=== PATIENT | female | born 2000 | race Caucasian/White ===

== ENCOUNTER 2023-04-26 09:56 | Outpatient (CLI) | payer OTHER, SELFPAY ==
--- NOTE | ~2023-04-26 | XR_ITS ---
EXAMINATION: XR wrist RT 2V DATE: 04/26/2023 10:11 INDICATION: Right wrist pain. TECHNIQUE: 2 views of right wrist were obtained. COMPARISON: None. FINDINGS: Bone alignment is normal. No fracture. Joint spaces are normal. IMPRESSION: 1. Normal right wrist. Reviewed, dictated and finalized at location [facility]. IMPRESSION: 1. Normal right wrist.
== END 2023-04-26 09:57 | disposition home or self-care (01) ==
LOC: ANHBWCIMG 09:58
PROVIDERS: PCP Nurse Practitioner Adult Health; Visit Provider Nurse Practitioner Adult Health
DX: M25.531 Pain in right wrist (principal)
CPT/HCPCS: 73100

== ENCOUNTER 2023-09-02 19:46 | Emergency (ER) | payer OTHER, SELFPAY ==
--- NOTE | ~2023-09-02 | CT_ITS ---
EXAMINATION: CT abdomen pelvis wo con DATE: 09/02/2023 20:32 INDICATION: Right lower quadrant abdominal pain since yesterday. Fever. TECHNIQUE: Computed tomography (CT) of the abdomen and pelvis was performed without intravenous contr ast. Automated exposure control and iterative reconstruction technique were employed. Exam dose: 183 .20 mGy-cm total exam DLP. COMPARISON: None. FINDINGS: The lung bases are clear. Normal heart size. No pericardial or pleural effusion. The liver, gallbladder, bile ducts, spleen, pancreas, pancreatic duct, and adrenal glands and kidneys appear normal. The urinary bladder is unremarkable. Normal caliber of the abdominal aorta. No intraperitoneal or retroperitoneal or pelvic lymphadenopath y or ascites is noted. There is an IUD within the uterus. There is heterogeneous approximately 4.5 cm soft tissue mass density in the right adnexal area which may represent ovarian mass or complicated cyst, pelvic inflammatory disease or abscess, or ovarian to rsion. Pelvic ultrasound correlation is recommended with particular attention to possible ovarian tor raphael. The appendix appears normal. There is a prominent amount of fecal material in the colon but no bowel obstruction, bowel wall thick ening, pneumatosis or intraperitoneal free air is detected. Small fat-containing umbilical hernia. Included skeletal structures are unremarkable. IMPRESSION: Heterogeneous soft tissue fullness in the right adnexal area, measuring up to 4.5 cm. Co nsider ovarian torsion, complicated cyst, PID or abscess, less likely ovarian neoplasm Normal-appearing appendix IUD within uterus Reviewed, dictated and finalized at [facility]. Reviewed, dictated and finalized at location A. [employer] IMPRESSION: Heterogeneous soft tissue fullness in the right adnexal area, leda uring up to 4.5 cm. Consider ovarian torsion, complicated cyst, PID or abscess, less likely ovarian neoplasm Normal-appearing appendix IUD within uterus
[2023-09-02 19:46] VITALS: BP 123/82; PULSE 107; RESP 18; TEMP 37.2; O2SAT 100
--- NOTE | 2023-09-02 19:52 | ED.ABDPAIN ---
HPI - Abdominal Pain General Chief Complaint: Abdominal Pain Stated Complaint: RLQ PAIN Time Seen by Provider: 09/02/23 19:50 Source: patient and family Mode of arrival: ambulatory Limitations: no limitations History of Present Illness HPI narrative: Patient is a 23-year-old female with right lower quadrant pain for the past day. MD elicited complaint: abdominal pain Pertinent past history: none Onset (ago): day(s) (1) Pain Consistency: intermittent Location: RLQ and groin Severity: moderate Pain scale (0-10): 5 Quality: sharp Radiation: other ( right groin) Migration to: no migration Exacerbating factors: nothing Relieving factors: nothing Associated symptoms: denies other symptoms Related Data Hx Last Menstrual Period: patient has IUD x5 years Patient : No Home Medications Medication Instructions Recorded Confirmed levonorgestrel 21 mcg/24 hours (8 1 device intrauterine ONCE 02/22/22 09/02/23 yrs) 52 mg intrauterine device (Mirena) Allergies Allergy/AdvReac Type Severity Reaction Status Date / Time No Known Allergies Allergy Verified 09/02/23 19:47 Review of Systems Review of Systems: All systems reviewed & are unremarkable except as noted in HPI and below Constitutional: Constitutional: Reports no additional constitutional complaints Eyes: Eyes: Reports no additional eye complaints ENT: Reports system reviewed and no additional complaints, except as documented Cardiovascular: Cardiovascular: Reports no additional cardiovascular complaints Respiratory: Respiratory: Reports no additional respiratory complaints Gastrointestinal: Gastrointestinal: Reports no additional gastrointestinal complaints Genitourinary: Genitourinary: Reports no additional female genitourinary complaints Musculoskeletal: Musculoskeletal: Reports no additional musculoskeletal complaints Integumentary/Breasts: Skin/Breast: Reports system reviewed and no additional complaints, except as docu Neurologic: Reports system reviewed and no additional complaints, except as documented Psychiatric: Psychiatric: Reports no additional psychiatric complaints Endocrine: Endocrine: Reports no additional endocrine complaints Hematologic/Lymphatic: Hematologic/Lymphatic: Reports no additional hematologic/lymphatic complaints Allergic/Immunologic: Allergic/Immunologic: Reports no additional allergic/immunologic complaints PMFSH Surgical History Surgical History H/O gynecological procedure Mirena iud insertion - 02/03/2018 Family History Family History Father History of ETOH abuse Sibling Cancer Grandparent Diabetes mellitus Grandparent Cancer Diabetes mellitus Social History Social History Smoking status: Never smoker Alcohol intake: current Alcohol use details: soicially Substance use: current Substance use type: marijuana Lack of Transportation: No Lack of Food: Never True Current Housing: I Have Housing Concerned About Future Housing: No Difficulty Paying Gas/Electric Bills: No Difficulty Paying for Meds: No Currently Unemployed: No Education: Bachelor's Degree Difficulty w/ Childcare or Family Care: No Living arrangements: alone Occupation/Education: occupation Additional occupation/education comments: kitchen help Gender identity (if verbalized by the patient): Female Sexual Orientation (if Verbalized by the Patient): Bisexual Exam Const: General: healthy appearing Nutritional Appearance: well nourished Orientation/consciousness: patient oriented x3 HENMT: Head: normal to inspection Ears: external ears normal Face/Nose/Sinus: Normal external nose present Eyes: Conjunctivae: conjunctivae normal Pupils: Equal, round and reactive pupils present EOM: EOMs intact bilaterally Neck: Nec
[2023-09-02 20:11] LABS: Appearance Urine Clear (Clear); Basophils Absolute Auto 0.05 K/mm3 (0.00-0.10); Basophils Percent Auto 0.5 % (0.0-1.0); Bilirubin Urine Negative (Negative); Blood Urine Negative (Negative); Color Urine Light Yellow (Yellow); Eosinophils Absolute Auto 0.13 K/mm3 (0.02-0.50); Eosinophils Percent Auto 1.4 % (1.0-6.0); Glucose Urine UA Negative (Negative); Hematocrit 40.6 % (35.0-49.0); Hemoglobin 13.7 g/dL (12.0-15.0); Immature Granulocyte Absolute 0.02 K/mm3 (0.00-0.00); Immature Granulocyte Percent A 0.2 % (0.0-0.0); Ketones Urine Negative (Negative); Leukocyte Esterase Ur Trace LEU/UL (Negative); Lymphocytes Absolute Auto 2.19 K/mm3 (1.10-4.50); Lymphocytes Percent Auto 23.9 % (18.0-42.0); Mean Corpuscular HGB Conc 33.7 g/dL (32.0-36.0); Mean Corpuscular Hemoglobin 30.2 pg (27.0-31.0); Mean Corpuscular Volume 89.4 fL (78.0-102.0); Mean Platelet Volume 9.6 fl (9.2-11.8); Monocytes Absolute Auto 0.53 K/mm3 (0.10-0.90); Monocytes Percent Auto 5.8 % (2.0-11.0); Neutrophils Absolute Auto 6.2 K/mm3 (1.7-7.2); Neutrophils Percent Auto 68.2 % (50.0-70.0); Nitrate Urine Negative (Negative); Platelet Count Result 249 K/mm3 (150-420); Protein Urine Negative (Negative); Red Blood Count 4.54 M/mm3 (4.20-5.40); Specific Grav Ur <= 1.005 (1.010-1.020); Urobilinogen Urine 0.2 mg/dL (0.2-1.0); White Blood Count 9.2 K/mm3 (4.8-10.8)
[2023-09-02 20:16] LABS: Add Urine Microscopic? YES; Bacteria Urine Trace /hpf; RBC Urine 0-2 /hpf (0-2); Squamous Epithelial Cell Urine Few /hpf (Few); Urine Pregnancy Test Negative; WBC Urine 0-3 /hpf (0-3)
[2023-09-02 20:17] LABS: Pregnancy On Board Control Positive
[2023-09-02 20:24] LABS: Alanine Aminotransferase 16 U/L (14-59); Albumin Level 4.5 g/dL (3.4-5.0); Alkaline Phosphatase 62 U/L (46-116); Anion Gap 4 mmol/L (8-16); Aspartate Amino Transferase 13 U/L (15-37); Bilirubin,Total 0.5 mg/dL (0.00-1.00); Blood Urea Nitrogen 8 mg/dL (7-18); Calcium 9.2 mg/dL (8.5-10.1); Carbon Dioxide 33 mmol/L (21-32); Chloride 102 mmol/L (98-108); Estimated CRCL calculation 74 ml/min; Estimated Glomerular Filt Rate > 60; Glucose 107 mg/dL (70-99); Lipase 26 U/L (16-77); Osmolality Calculated 286 mOsm/kg (285-295); Potassium 3.4 mmol/L (3.5-5.1); Sodium 139 mmol/L (136-145); Total Protein 7.5 g/dL (6.4-8.2)
[2023-09-02 20:25] LABS: Partial Thromboplastin Time 27.1 SEC (23.90-30.70); Prothrombin Time 10.9 Seconds (9.50-12.10)
== END 2023-09-02 21:52 | disposition short-term general hospital (02) ==
PROVIDERS: Emergency Provider Emergency Medicine; PCP Family Medicine
DX: R10.31 Right lower quadrant pain (principal); Z79.899 Other long term (current) drug therapy
CPT/HCPCS: 36415; 74176; 80053; 81001; 81025; 83690; 85025; 85610; 85730; 99285

== ENCOUNTER 2023-09-02 22:09 | Emergency (ER) | payer OTHER, SELFPAY ==
--- NOTE | ~2023-09-02 | US_ITS ---
EXAMINATION: US pelvic complete DATE: 09/02/2023 23:57 INDICATION: Right lower quadrant pain for 2 days Comparison:No prior studies for comparison. TECHNIQUE: Multiple transabdominal and endovaginal sonographic images of the pelvis performed. FINDINGS: The uterus measures 7.4 x 2.4 x 3.5 cm. There is an IUD in the endometrium. The right ovary measures 5.3 x 4 x 4.6 cm and the left ovary measures 4.2 x 2.3 x 2.2 cm. There is a complicated right ovarian cyst measuring 4.4 cm. No evidence for ovarian torsion. There is no free fluid in the pelvis. There are no abnormal masses seen on either side. IMPRESSION: 1. Complicated right ovarian cyst measuring 4.4 cm. Consider follow-up ultrasound in 3 months. Reviewed, dictated and finalized at location A. [employer] IMPRESSION: 1. Complicated right ovarian cyst measuring 4.4 cm. Consider follow-up ultrasou nd in 3 months.
[2023-09-02 22:15] VITALS: BP 109/57; PULSE 68; RESP 15; TEMP 36.9; O2SAT 100
--- NOTE | 2023-09-02 22:27 | ED.ABDPAIN ---
HPI - Abdominal Pain General Chief Complaint: Abdominal Pain Stated Complaint: right lower left pain Time Seen by Provider: 09/02/23 22:16 Source: patient Mode of arrival: ambulatory Limitations: no limitations History of Present Illness HPI narrative: This is a 23 year old female that presents to the ER for right lower quadrant pain ongoing over the last 2 days. Reports a sharp pain that is worse with position changes. She was seen at [facility] [facility] and sent here for further evaluation due to CT scan findings to rule out ovarian torsion. Reports some nausea. Denies fever, vomiting, dysuria or hematuria. Related Data Home Medications Medication Instructions Recorded Confirmed levonorgestrel 21 mcg/24 hours (8 1 device intrauterine ONCE 02/22/22 09/02/23 yrs) 52 mg intrauterine device (Mirena) Allergies Allergy/AdvReac Type Severity Reaction Status Date / Time No Known Allergies Allergy Verified 09/03/23 00:18 Review of Systems Review of Systems: CONSTITUTIONAL: Denies fever GASTROINTESTINAL: Reports abdominal pain, nausea. Denies vomiting, or diarrhea. GENITOURINARY: Denies dysuria or hematuria. All systems reviewed & are unremarkable except as noted in HPI and below PMFSH Past Medical History Medical History (Updated 09/03/23 @ 01:27 by Estela Vargas PA-C) No active medical problems Surgical History Surgical History H/O gynecological procedure Mirena iud insertion - 02/03/2018 Family History Family History Father History of ETOH abuse Sibling Cancer Grandparent Diabetes mellitus Grandparent Cancer Diabetes mellitus Social History Social History Smoking status: Never smoker Alcohol intake: current Alcohol use details: soicially Substance use: current Substance use type: marijuana Lack of Transportation: No Lack of Food: Never True Current Housing: I Have Housing Concerned About Future Housing: No Difficulty Paying Gas/Electric Bills: No Difficulty Paying for Meds: No Currently Unemployed: No Education: Bachelor's Degree Difficulty w/ Childcare or Family Care: No Living arrangements: alone Occupation/Education: occupation Additional occupation/education comments: kitchen help Gender identity (if verbalized by the patient): Female Sexual Orientation (if Verbalized by the Patient): Bisexual Exam Narrative: GENERAL: Well-appearing, well-nourished, and in no acute distress. HEAD: Normocephalic, atraumatic. EYES: EOMI. CHEST: Clear to auscultation. No respiratory distress. No wheezes rales or rhonchi HEART: Regular rate and rhythm. No murmur heard. Normal peripheral pulses. ABDOMEN: Soft, nondistended, normal active bowel sounds. Mild tenderness to palpation in the right lower quadrant, without guarding EXTREMITIES: Normal range of motion. No edema. SKIN: Warm, dry, no rash. NEURO: No focal deficits. Alert and oriented x3. PSYCH: Normal mood and affect Course Course Emergency Course: Patient and family updated on workup and agree with plan of care Vital Signs Vital signs: Vital Signs Temperature 98.4 F 09/02/23 22:15 Pulse Rate 68 09/02/23 22:15 Respiratory Rate 15 09/02/23 22:15 Blood Pressure 109/57 L 09/02/23 22:15 Pulse Oximetry 100 09/02/23 22:15 Oxygen Delivery Room Air 09/02/23 22:15 Temperature 98.4 F 09/02/23 22:15 Pulse Rate 61 09/03/23 00:17 Respiratory Rate 12 09/03/23 00:17 Blood Pressure 109/57 L 09/02/23 22:15 Pulse Oximetry 100 09/03/23 00:17 Oxygen Delivery Room Air 09/02/23 22:15 MDM - Abdominal Pain MDM Narrative Medical decision making narrative: Patient presents to the ER for right lower abdominal/pelvic pain. Initially evaluated at [facility] and sent here to r/o torsion. Patient is afebril
[2023-09-02] MEDS: ONDANSETRON INJ 4 MG/2 ML VIAL IV PUSH (22:36)
[2023-09-02] MEDS: MORPHINE SULFATE (*CRX) 4 MG/ML INJ IV PUSH (22:36)
--- NOTE | 2023-09-02 23:18 | PC.NURSE ---
This RN took pt report from WILLIAMS Roche. This RN assumed care of patient.
[2023-09-03 00:17] VITALS: PULSE 61; RESP 12; O2SAT 100
[2023-09-03] MEDS: POTASSIUM CHLORIDE 20 MEQ ER TABLET 40 MEQ PO (01:45)
[2023-09-03 01:46] VITALS: PULSE 70; RESP 18; O2SAT 100
[2023-09-03 02:03] VITALS: BP 114/68
== END 2023-09-03 01:49 | disposition home or self-care (01) ==
PROVIDERS: Emergency Provider Physician Assistant; PCP Family Medicine
DX: E87.6 Hypokalemia (principal); N83.201 Unspecified ovarian cyst, right side
CPT/HCPCS: 76856; 96374; 96375; 99284; A9270; J2270; J2405